=== PATIENT | female | born 1965 | race Caucasian/White ===

== ENCOUNTER → 2016-10-25 | Outpatient (CLI) | payer BC ==
--- NOTE | 2016-10-26 10:38 | DI ---
XR HIP B/L MIN 2VW, EACH HIP,10/25/2016 3:29 PM: Clinical History: Bilateral hip pain Previous Exam: None at this facility. Findings: AP and crosstable lateral views of both hips are obtained, and demonstrate anatomic alignment without fractures. A nonobstructive bowel gas pattern is seen. Phleboliths are seen within the deep pelvis. There are no pathologic calcifications identified. Impression: No fractures.
== END ==
LOC: ORTHO 15:45
PROVIDERS: ATTEND Orthopaedic Surgery
DX: M25.552 Pain in left hip (principal); M25.551 Pain in right hip; M16.0 Bilateral primary osteoarthritis of hip
CPT/HCPCS: 73521

== ENCOUNTER 2016-10-26 08:55 | Day surgery (SDC) | payer BC ==
[2016-10-26] MEDS ORDERED: ROPIVACAINE HCL 7.5 MG/1 ML - 20 ML ONE (09:11)
[2016-10-26] MEDS ORDERED: LIDOCAINE W/ SODIUM BICARB 0.5 ML SYR ONE (09:11)
[2016-10-26] MEDS ORDERED: Iopamidol Inj 61% 50 ML VIAL ONE (09:11)
[2016-10-26] MEDS ORDERED: BETAMET ACET/BETAMET NA PH 6 MG/1 ML - 5 ML ONE (09:11)
[2016-10-26] MEDS ORDERED: LIDOCAINE MPF 2% - 5 ML (20 MG/1 ML) ONE (09:11)
[2016-10-26 15:04] VITALS: RESP 14; TEMP 98.1
== END 2016-10-26 13:48 | disposition home or self-care (01) ==
LOC: SDSC 08:55
PROVIDERS: ATTEND Orthopaedic Surgery
DX: M16.12 Unilateral primary osteoarthritis, left hip (principal)
CPT/HCPCS: 20610; 76000; J0702; J2001

== ENCOUNTER 2016-11-04 11:51 | Day surgery (SDC) | payer BC ==
[~2016-11-04 11:51] MED LIST: BETAMET ACET/BETAMET NA PH 6 MG/1 ML - 5 ML ONE; Iopamidol Inj 61% 50 ML VIAL ONE; LIDOCAINE MPF 2% - 5 ML (20 MG/1 ML) ONE; LIDOCAINE W/ SODIUM BICARB 0.5 ML SYR ONE; ROPIVACAINE HCL 7.5 MG/1 ML - 20 ML ONE
[2016-11-04 13:19] VITALS: RESP 14; TEMP 97.9
[2016-11-04] MEDS ORDERED: LIDOCAINE W/ SODIUM BICARB 0.5 ML SYR ONE (13:32)
== END 2016-11-04 13:07 | disposition home or self-care (01) ==
LOC: SDSC 11:51
PROVIDERS: ATTEND Orthopaedic Surgery
DX: M16.11 Unilateral primary osteoarthritis, right hip (principal)
CPT/HCPCS: 20610; 76000; J0702; J2001

== ENCOUNTER 2019-02-19 12:40 | Observation (INO) ==
[~2019-02-19 12:40] MED LIST changes: -BETAMET ACET/BETAMET NA PH 6 MG/1 ML - 5 ML ONE; +DEXAMETHASONE PF 10 MG/1 ML VIAL IVP ONE; -Iopamidol Inj 61% 50 ML VIAL ONE; -LIDOCAINE MPF 2% - 5 ML (20 MG/1 ML) ONE; +LIDOCAINE W/ SODIUM BICARB 0.5 ML SYR SUBD ONE; +Lactated Ringers 1,000 ML PRIMARY IV ONE; +Nasal Sanitizer POPSWAB ampule 3 AMP (Nozin) PREOP DOSE ENOS SCH; -ROPIVACAINE HCL 7.5 MG/1 ML - 20 ML ONE; +ceFAZolin Inj 2gm (Premix) 2 GM/50 ML BAG IV ONE
[2019-02-19] MEDS ORDERED: fentaNYL Inj 100 MCG/2 ML VIAL ONE ×2 (13:17→15:46)
[2019-02-19] MEDS ORDERED: REMIFENTANIL HCL 2 MG VIAL IV ONE (13:17)
[2019-02-19] MEDS ORDERED: MIDAZOLAM 5 MG/1 ML ONE (13:17)
[2019-02-19] MEDS ORDERED: REMIFENTANIL 1 MG/1 ML IV ONE (13:17)
[2019-02-19] MEDS ORDERED: Propofol 1,000 MG/100 ML VIAL IV ONE (13:19)
[2019-02-19] MEDS ORDERED: Sodium Chloride 0.9% 0 ML ONE (13:25)
[2019-02-19] MEDS ORDERED: MIDAZOLAM HCL 2 MG/2 ML VIAL ONE (13:31)
[2019-02-19] MEDS ORDERED: Sodium Chloride 0.9% 250 ML ONE (13:42)
[2019-02-19] MEDS ORDERED: DEXAMETHASONE PF 10 MG/1 ML VIAL ONE (13:43)
[2019-02-19] MEDS ORDERED: Sodium Chloride 0.9% vial 10 ML ONE (13:48)
[2019-02-19] MEDS ORDERED: BACITRACIN 50,000 UNIT VIAL IRRIG ONE (13:48)
[2019-02-19 14:25] VITALS: O2SAT 95
[2019-02-19] MEDS ORDERED: ONDANSETRON 4 MG/2 ML VIAL ONE (14:25)
[2019-02-19] MEDS ORDERED: THROMBIN (BOVINE) 20,000 UNIT KIT TOPICAL ONE (14:25)
[2019-02-19] MEDS ORDERED: LIDOCAINE HCL 1%/EPI 1:100,000 - 20 ML VIAL ONE (14:29)
[2019-02-19] MEDS ORDERED: Lactated Ringers 1,000 ML PRIMARY IV ONE (15:15)
[2019-02-19] MEDS ORDERED: KETOROLAC 30 MG/1 ML VIAL ONE (15:39)
[2019-02-19] MEDS ORDERED: LIDOCAINE W/ SODIUM BICARB 0.5 ML SYR SUBD PRN (16:09)
[2019-02-19] MEDS ORDERED: HYDROmorphone 2 MG/1 ML IVP PRN (16:09)
[2019-02-19] MEDS ORDERED: Prochlorperazine Edisylate Inj 10mg/2ml vial IVP PRN (16:09)
[2019-02-19] MEDS ORDERED: fentaNYL Inj 100 MCG/2 ML VIAL IVP PRN (16:09)
[2019-02-19] MEDS ORDERED: ATROPINE SULFATE 0.4 MG/1 ML VIAL IVP PRN (16:09)
[2019-02-19] MEDS ORDERED: ONDANSETRON 4 MG/2 ML VIAL IVP PRN ×2 (16:09→16:27)
[2019-02-19] MEDS ORDERED: THROMBIN (BOVINE) 5,000 UNIT VIAL TOPICAL ONE (16:11)
[2019-02-19] MEDS ORDERED: Lactated Ringers 1,000 ML PRIMARY IV SCH (16:15)
[2019-02-19] MEDS ORDERED: HYDROmorphone 2 MG/1 ML ONE (16:15)
[2019-02-19] MEDS ORDERED: HYDROcodone-APAP 5 MG -325 MG TABLET PO PRN (16:27)
[2019-02-19] MEDS ORDERED: CYCLOBENZAPRINE 10 MG TABLET PO PRN (16:27)
[2019-02-19] MEDS ORDERED: ALBUTEROL SULFATE 8.5 GM HFA INHALER INH PRN (16:27)
[2019-02-19] MEDS ORDERED: ACETAMINOPHEN 325 MG TABLET PO PRN (16:27)
[2019-02-19] MEDS ORDERED: GABAPENTIN 300 MG CAPSULE PO PRN (16:27)
[2019-02-19] MEDS ORDERED: MORPHINE SULFATE 2 MG/1 ML IVP PRN (16:27)
[2019-02-19 17:25] VITALS: TEMP 97.4
[2019-02-19 18:04] VITALS: BP 133/68; RESP 16
[2019-02-20] MEDS ORDERED: OMEPRAZOLE 40 MG CAPSULE PO SCH (07:00)
[2019-02-20] MEDS ORDERED: VERAPAMIL 120 MG PO SCH (09:00)
== END 2019-02-19 21:10 | disposition home or self-care (01) ==
LOC: MED/SURG 12:40 → OR 12:40 → OPS 12:41
PROVIDERS: ADMIT Emergency Medicine; ATTEND Emergency Medicine